=== PATIENT | male | born 1970 | race Caucasian/White ===

== ENCOUNTER 2016-06-26 18:35 | Emergency (ER) | payer OTHER ==
[~2016-06-26 18:35] MED LIST: PERCOCET1 TA1 PO; TYLENOL/CODEINE #3 PO
--- NOTE | 2016-06-26 22:16 | DIAGNOSTIC IMAGING REPORT ---
PROCEDURE: ABDOMEN/PELVIS WITH CONTRAST CLINICAL INDICATION: ABDOMINAL PAIN TECHNIQUE: 125 ml of Isovue 300 were injected intravenously and axial images were obtained of the abdomen and pelvis with sagittal and coronal reformations. COMPARISON: 03/28/2016 FINDINGS: ABDOMEN: Clear lung bases. Normal sized heart. No hiatal hernia. A few hypodensities are present in the liver, too small to accurately characterize. Small cysts in each kidney, the largest exophytic cyst in the left kidney upper pole measures 2.0 cm. The gallbladder is decompressed. The adrenal glands, pancreas and spleen are normal. The abdominal aorta is normal in its course and caliber. No atherosclerosis. There are no suspicious calcifications, retroperitoneal adenopathy or masses. The stomach, upper bowel loops are normal. Intact anterior abdominal wall. No free fluid or inflammation. Normal mesentery without signs of rotation. No mesenteric mass or fluid. No small bowel obstruction. PELVIS: The appendix is surgically absent. The pelvic small bowel loops are normal. Mildly increased amount of stool in the colon and rectum. The prostate gland, seminal vesicles, urinary bladder, and pelvic vessels are normal. No adenopathy, free fluid, or pelvic mass. Intact osseous structures. IMPRESSION: 1. No acute process. 2. No evidence of volvulus, internal hernia, malrotation, or bowel obstruction. 3. Findings called to the emergency room. All CT scans at this facility use dose modulation, iterative reconstruction, and/or weight-based dosing when appropriate to reduce radiation dose to as low as reasonably achievable.
--- NOTE | 2016-06-26 22:21 | ED ORDER SUMMARY ---
..... Patient: DEO COLLINS OrderSheet [facility] VisitID: [id number] [address] [place] [address] 46y, M Registration Date/Time: 06/26/2016 ORDER SHEET Weight: 63.5 kg (stated) Allergies: Penicillin GENERAL ORDERS: CBC w Diff Urgent (19:48 06/26/2016 HSoule per protocol) (19:56 AMcQuoid ER Tech1) CMP Urgent (19:48 06/26/2016 HSoule per protocol) (19:56 AMcQuoid ER Tech1) UA-Culture if indicated Urgent (19:48 06/26/2016 HSoule per protocol) (Ack 19:56 AMcQuoid ER Tech1) (19:58 AMcKenna) Lipase Urgent (21:06/26/2016 Mamadou RAMOS) (21:17 AMcQuoid ER Tech1) Amylase Urgent (21:06/26/2016 Mamadou RAMOS) (21:17 AMcQuoid ER Tech1) CT Abd/Pel w Cont (No) (N/A) Urgent (21:07 06/26/2016 Mamadou RAMOS) (Ack 21:17 AMcQuoid ER Tech1) (22:39 RFay) MEDICATION ORDERS: IV FLUIDS: IV Saline Lock (19:48 06/26/2016 HSoule per protocol) (Ack 19:58 AMcKenna) (19:58 AMcKenna) IV NS : initial bolus 500 mL (1000 mL/hr), then 250 mL/hr for 2h (NOW); Routine (21:08 06/26/2016 Mamadou RAMOS) (Ack 21:11 HSoule) (Hold 21:22 HSoule) (21:41 HSoule) ORDER SHEET NOTES: [Electronically signed by Angelica Sams (22:57 06/26/2016)] [Electronically signed by Camilo Guerrero MD (10:25 06/30/2016)] [Electronically locked/signed by Angelica Sams (22:57 06/26/2016)]
--- NOTE | 2016-06-26 22:21 | ED ORDER SUMMARY ---
..... Patient: DEO COLLINS OrderSheet [facility] VisitID: [id number] [address] [place] [address] 46y, M Registration Date/Time: 06/26/2016 ORDER SHEET Weight: 63.5 kg (stated) Allergies: Penicillin GENERAL ORDERS: CBC w Diff Urgent (19:48 06/26/2016 HSoule per protocol) (19:56 AMcQuoid ER Tech1) CMP Urgent (19:48 06/26/2016 HSoule per protocol) (19:56 AMcQuoid ER Tech1) UA-Culture if indicated Urgent (19:48 06/26/2016 HSoule per protocol) (Ack 19:56 AMcQuoid ER Tech1) (19:58 AMcKenna) Lipase Urgent (21:06/26/2016 Mamadou RAMOS) (21:17 AMcQuoid ER Tech1) Amylase Urgent (21:06/26/2016 Mamadou RAMOS) (21:17 AMcQuoid ER Tech1) CT Abd/Pel w Cont (No) (N/A) Urgent (21:07 06/26/2016 Mamadou RAMOS) (Ack 21:17 AMcQuoid ER Tech1) (22:39 RFay) MEDICATION ORDERS: IV FLUIDS: IV Saline Lock (19:48 06/26/2016 HSoule per protocol) (Ack 19:58 AMcKenna) (19:58 AMcKenna) IV NS : initial bolus 500 mL (1000 mL/hr), then 250 mL/hr for 2h (NOW); Routine (21:08 06/26/2016 Mamadou RAMOS) (Ack 21:11 HSoule) (Hold 21:22 HSoule) (21:41 HSoule) ORDER SHEET NOTES: [Electronically signed by Angelica Sams (22:57 06/26/2016)] [Electronically signed by Camilo Guerrero MD (10:25 06/30/2016)] [Electronically locked/signed by Angelica Sams (22:57 06/26/2016)]
--- NOTE | 2016-06-26 22:21 | ED NURSING NOTES ---
Clinical Report - Nurses [facility]ly [facility] [address] [place] [address] 06/26/2016 18:36 Patient: DEO COLLINS TRIAGE Triage time 18:57 Jun 26 2016. Acuity: LEVEL 3. Chief Complaint: ABDOMINAL PAIN. SEPSIS SCREEN: Sepsis Screen: negative. Negative (no infection suspected/documented). Heart rate greater than 90. SERGIO COMA SCORE: Sergio Coma Scale: 15- eyes open spontaneously (4); best verbal response- oriented and converses (5); best motor response- obeys commands (6). --19:02 AliM 18:55 06/26/16. BP: 143/97. HR: 108. RR: 20. O2 saturation: 97%. Temp: 98.3 F (oral). Pain level now: 10/08. --19:02 AliM. Weight: 63.5 kg stated. Height/Length: 67 inches Per Patient. BMI: 21.9. --19:00 AliM. Medications None. --18:58 AliM. Allergies Penicillin. --18:59 AliM. History Arrived by private vehicle. Historian: patient. Unaccompanied. Primary physician ([place]). ( Abdominal pain). ( Pt reports appendectomy in March and pain started 6 days. Pt reports more pain with pressure but pain is continuous. Pt reports normal bowel pattern, no nausea.). He has had moderate, sharp, intermittent abdominal pain (for 6 days). The pain is described as located in the RLQ. No nausea, vomiting, diarrhea or constipation. PAST MEDICAL HX: Immunizations: status is unknown. SOCIAL HX: Smoker- current status unknown (1 pack every 3 days). No alcohol use or drug use. No recent travel. No infectious disease exposure. No known contact with a sick individual. ABUSE ASSESSMENT: No report of abuse. FALL RISK ASSESSMENT: Fall risk assessment completed. No fall risk identified. NUTRITIONAL RISK ASSESSMENT: The nutritional risk assessment revealed no deficiencies. FUNCTIONAL ASSESSMENT: Functional assessment: no impairments noted. LEARNING NEEDS ASSESSMENT: The learning needs assessment revealed no barriers. SKIN INTEGRITY ASSESSMENT: Skin integrity risk assessment completed. No skin integrity risk identified. --19:02 AliM. PROBLEMS: Sciatica. Acute Pain. Epididymitis. --18:59 AliM. ADDITIONAL SURGERIES: Appendectomy. --18:59 AliM. PHYSICAL ASSESSMENT Ambulatory to room. GENERAL / NEURO / PSYCH: Alert. Oriented X 4. Appears in no acute distress. HEENT: Mucous membranes are pink. RESPIRATORY: Respirations not labored. CVS: Cardiac rhythm: sinus tachycardia. Capillary refill less than 2 seconds. GI / : Abdomen soft. Abdominal tenderness in the right lower quadrant. Guarding present. No rebound tenderness. SKIN: Skin is warm and dry. --19:04 AliM. NURSING PROGRESS NOTES Patient gowned. Head of bed elevated. Reassurance given. Call light placed in reach. Side rails up x 1. Bed placed in lowest position. Brakes of bed on. Patient ready for evaluation- ED physician notified. --19:04 AliM 19:56 06/26/16. BP: 127/70. HR: 82. RR: 14. O2 saturation: 99%. Pain level now: 0/10. --19:57 AliM Patient ID band checked for patient name and birthdate: patient confirmed. Instructions provided to collect clean catch urine and patient verbalized understanding. Clean catch urine collected with return of yellow-colored clear urine; sample sent to lab. Specimen labeled in the presence of the patient. --19:57 AliM 19:42 06/26/2016 Site #1 started via IV in the left antecubital space with an 20g angiocath, with aseptic technique and good blood return; one attempt. Blood drawn: rainbow set. Labeled in the presence of the patient and sent to the lab. Saline lock flushed with 10 mL saline. --19:57 AliM 21:03 06/26/16. BP: 140/92. HR: 103. RR: 14. O2 saturation: 100%. Temp: 98.5 F (oral). Pain level now: 0/10. Additional comments: Pysician at bedside. --21:03 Ali Patient walked to AK with tech. (21:18 Jun 26 2016). --21:18 Angelica Sams Patient returned from CT by stretcher with tech. (21:30 Jun 26 2016). --21:36 Angelica Sams 21:40 06/26/2016 Started bag #1 1000 mL IV Fluids IV NS (Saline); at 1000 mL/hr over 30 minute(s) via site #1 via IV pump. Allergies verified and confirmed 5 rights. IV patency established. IV site checked: no pain, redness, or swelling. IV flushed thoroughly pre- and post-medication administration. --21:41 Angelica Sams 22:24 06/26/2016 IV Fluids IV NS via IV site #1 Rate Changed: bag #1 decreased to 250 mL/hr via IV pump. IV patency established. IV site checked: no pain, redness, or swelling. IV flushed thoroughly. Confirmed 5 Rights. --22:24 Angelica Sams 22:35 06/26/2016 IV Fluids IV NS Discontinued: bag #1 discontinued upon discharge. Total amount infused: 800 mL. IV patency established. IV site checked: no pain, redness, or swelling. IV flushed thoroughly. --22:56 Angelica Sams. DISPOSITION / DISCHARGE Condition at departure: unchanged and stable. No learning barriers present. Discharge instructions provided and reviewed with the patient. Patient verbalized understanding. Written instructions provided in Cook Islander. ( Taught pt to drink a lot of fluids while taking GoLytely. Informed pt to stay near bathroom while on medication.). The patient was discharged by the nurse practitioner. He was discharged home and unaccompanied at time of discharge. He left the Emergency Department ambulatory and via private vehicle. Patient driving. FALL RISK ASSESSMENT: Fall risk assessment completed. No fall risk identified. --22:44 Lam 22:41 06/26/16. BP: 137/94. HR: 106. RR: 14. O2 saturation: 98%. Temp: 97.6 F (oral). Pain level now: 0/10. Additional comments: Provider aware of vitals and cleared for discharge. --22:44 Lam ( Chart reviewed by writing RN). --22:56 Angelica Sams 22:35 06/26/2016 Site #1 removed upon discharge. Catheter intact. Bandaid applied. --22:56 Angelica Sams. Locked/Released at 06/26/2016 22:57 by Angelica Sams,
--- NOTE | 2016-06-26 22:21 | ED CLINICAL REPORT ---
Clinical Report - Physicians/Mid Levels [facility] [address] [place] [address] 06/26/2016 18:36 Patient: DEO COLLINS Time Seen: 20:55 Jun 26 2016. Arrived- By private vehicle. Historian- patient. CPT: ER phys charges level 4 (#[id number]). HISTORY OF PRESENT ILLNESS Chief Complaint: ABDOMINAL PAIN. At its maximum, severity described as moderate. When seen in the E.D., severity described as mild. Modifying factors- worsened by movement. Not relieved by anything. It is described as cramping and it is described as located in the right lower quadrant and in the periumbilical area. This started about 8 days RESORT MANAGER; ( Pt reports appendectomy in March and pain started 6 days. Pt reports more pain with pressure but pain is continuous. Pt reports normal bowel pattern, no nausea.). He has had moderate, sharp, intermittent abdominal pain (for 6 days). The pain is described as located in the RLQ. No nausea, vomiting, diarrhea or constipation. and is still present. No nausea, loss of appetite, vomiting or diarrhea. The patient has had recent travel. Similar symptoms previously: None. Recent medical care: The patient was seen recently at this facility (3 months ago). Evaluation/treatment- Appendectomy. REVIEW OF SYSTEMS No constipation, black stools, hematemesis, difficulty with urination or pain with urination. No urinary frequency, fever, sore throat, chest pain or difficulty breathing. No cough, joint pain, skin rash, chills or back pain. All systems otherwise negative, except as recorded above. PAST HISTORY Sciatica. Acute Pain. Epididymitis. . ADDITIONAL SURGERIES: Appendectomy. Medications: None. Allergies: Penicillin. SOCIAL HISTORY Heavy tobacco smoker- less than 1 pack per day. No alcohol use or drug use. ADDITIONAL NOTES The nursing notes have been reviewed. PHYSICAL EXAM Vital Signs: 06/26/2016 18:55 BP: 143/97. HR: 108. RR: 20. O2 saturation: 97%. Temp: 98.3 F. Pain level now: 10/08. Appearance: Alert. No acute distress. Eyes: Eyes normal inspection. ENT: Pharynx normal. Neck: Normal inspection. CVS: Tachycardia. Heart sounds normal. Pulses normal. Respiratory: No respiratory distress. Breath sounds normal. Chest nontender. Abdomen: Soft. Mild tenderness in the right side of the abdomen, periumbilical area and right lower quadrant. Bowel sounds normal. Back: Normal inspection. No CVA tenderness. Skin: Skin warm. Normal skin color. No rash. Extremities: Extremities exhibit normal ROM. No lower extremity edema. Neuro: Oriented X 3. No motor deficit. No sensory deficit. LABS, X-RAYS, AND EKG Abdominal CT: Normal study. No mass. No free fluid. No diverticulitis. Moderate retained stool. No post-op fluid collections or inflammation. Study type: abdomen and pelvis. Abdominal CT performed with IV contrast. The study was independently viewed by me, interpreted by the radiologist and discussed with the radiologist. Laboratory Tests: UA-Culture if indicated: (BETSY: 06/26/2016 19:54) ( [facility] 06/26/2016 21:03) Final results Test Result Flag Units (Reference) URINE COLOR YELLOW URINE APPEARANCE CLEAR URINE GLUCOSE NEGATIVE (NEGATIVE) URINE BILIRUBIN NEGATIVE (NEGATIVE) URINE KETONE NEGATIVE (NEGATIVE) URINE SPECIFIC GRAVITY 1.020 (1.010-1.030) URINE PH 6.0 (5.0-8.0) URINE PROTEIN NEGATIVE (NEGATIVE) URINE UROBILINOGEN 0.2 EU/dL (0.2-1.0) URINE NITRITE NEGATIVE (NEGATIVE) URINE BLOOD NEGATIVE (NEGATIVE) URINE LEUK ESTERASE NEGATIVE (NEGATIVE) URINE RBC RARE rbc/hpf (0-1) URINE WBC NONE SEEN wbc/hpf (0-1) URINE EPITHELIAL CELLS NONE SEEN EPI/hpf (0-5) URINE BACTERIA NONE SEEN (NONE SEEN) URINE COMMENT CULT NOT INDICATED URINE CULTURES ARE SET-UP BASED ON THE FOLLOWING CRITERIA:POSITIVE NITRITEPOSITIVE LEUKOCYTE ESTERASEGREATER THAN 10 WHITE BLOOD CELLSMODERATE (2+) OR GREATER BACTERIA CBC w Diff: (BETSY: 06/26/2016 19:13) ( [facility] 06/26/2016 20:08) Final results Test Result Flag Units (Reference) WHITE BLOOD COUNT 7.2 K/uL (4.5-11.5) RED BLOOD COUNT 4.87 M/uL (4.50-5.90) HEMOGLOBIN 14.4 gm/dL (13.5-17.5) HEMATOCRIT 42.7 % (41.0-53.0) MEAN CELL VOLUME 88 fL (80-100) MEAN CORPUSCULAR HGB 30 pg (26-34) MEAN CORPUSCULAR HGB CONC 34 g/dL (31-37) RED CELL DISTRIBUTION WIDTH 13.3 % (11.6-14.8) PLATELET COUNT 204 K/uL (150-400) NEUTROPHIL % 56.1 % (50-75) LYMPH % 33.5 % (25-40) MONO % 7.3 % (3-14) EOSINOPHIL % 2.7 % (0-4) BASOPHIL % 0.4 % (0-2) Lipase: (BETSY: 06/26/2016 19:13) ( [facility] 06/26/2016 21:28) Final results Test Result Flag Units (Reference) LIPASE 167 U/L (73-393) AMYLASE 68 U/L (25-115) CMP: (BETSY: 06/26/2016 19:13) ( [facility] 06/26/2016 20:14) Final results Test Result Flag Units (Reference) GLUCOSE 108 mg/dL (70-110) BUN 16 mg/dL (7-18) CREATININE 1.0 mg/dL (0.6-1.3) Estimated GFR >60 mL/min Estimated GFR- >60 mL/min Note: Persistent reduction over 3 months in eGFR<60 mL/min/1.73 m2 defines CKD. Patients with eGFR values>=60 mL/min/1.73 m2 may also have CKD if evidence ofpersistent proteinuria. Additional information may be foundat www.kidney.org. SODIUM 130 L mmol/L (136-145) POTASSIUM 3.4 L mmol/L (3.5-5.1) CHLORIDE 103 mmol/L (98-107) CARBON DIOXIDE 26 mmol/L (21-32) CALCIUM 9.1 mg/dL (8.5-10.1) TOTAL PROTEIN 6.9 g/dL (6.4-8.2) ALBUMIN 4.0 g/dL (3.3-5.0) BILIRUBIN, TOTAL 0.3 mg/dL (0.0-1.0) ALKALINE PHOSPHATASE 83 U/L (46-116) AST (SGOT) 17 U/L (15-37) ALT (SGPT) 32 U/L (12-78) . PROGRESS AND PROCEDURES Course of Care: IV NS. Patient/family counseled. Disposition: Discharged. Condition: stable. CLINICAL IMPRESSION Acute right lower quadrant abdominal pain of unknown cause. INSTRUCTIONS Warnings: Further evaluation is necessary. GENERAL WARNINGS: Return or contact your physician immediately if your condition worsens or changes unexpectedly, if not improving as expected, or if other problems arise. Prescription Medications: GoLytely 4 oz every 10 minutes until gone or until all output is clear. # 1 jug. OTC Medications: Take acetaminophen (Tylenol, Datril, etc.) according to label instructions. Available over the counter. Follow-up: Return to the emergency department for fever , passing blood or acute worsening pain. Follow up with your doctor in two days if not well. Understanding of the discharge instructions verbalized by patient. (Electronically signed by Camilo Guerrero MD 06/30/2016 10:25)
--- NOTE | 2016-06-30 10:25 | ED DISCHARGE INSTRUCTIONS ---
Patient: DEO COLLINS General Instructions [facility] VisitID: [id number] [place] [address] 46y, M Registration Date/Time: 06/26/2016 Acute right lower quadrant abdominal pain of unknown cause. INSTRUCTIONS Warnings: Further evaluation is necessary. GENERAL WARNINGS: Return or contact your physician immediately if your condition worsens or changes unexpectedly, if not improving as expected, or if other problems arise. Prescription Medications: GoLytely 4 oz every 10 minutes until gone or until all output is clear. # 1 jug. OTC Medications: Take acetaminophen (Tylenol, Datril, etc.) according to label instructions. Available over the counter. Follow-up: Return to the emergency department for fever , passing blood or acute worsening pain. Follow up with your doctor in two days if not well. Understanding of the discharge instructions verbalized by patient. ADDITIONAL INFORMATION Abdominal Pain,Uncertain Cause [Male] Based on your visit today, the exact cause of your abdominalpain is not clear. Your exam and tests do not indicate a dangerous cause at this time. However, the signs of a serious problem may take more time to appear. Although your evaluation was reassuring today, sometimes early in the course of many conditions, exam and lab tests can appear normal. Therefore, it is important for you to watch for any new symptoms or worsening of your condition. Causes It may not be obvious what caused your symptoms. Pay attention to things that do seem to make your symptoms worse or better and discuss this with your doctor when you follow up. Diagnosis The evaluation of abdominal pain in the emergency department may onlyrequire an exam by the doctor or it may include blood, urine or imaging studies, depending on many factors. Sometimes exams and tests can identify a cause but in many cases, a clear cause is not found. Further testing at follow up visits may help to suggest a clear diagnosis. Home Care Rest as much as possible until your next exam. Try to avoid any medications (unless otherwise directed by your doctor), foods, activities, or other factors that you may have contributed to your symptoms. Try to eat foods that you know that you have tolerated well in the past. Certain diets may be recommended for some conditions that cause abdominal pain. However, since the cause of your symptoms may not be clear, discuss your diet more with your primary care provider or specialist for further recommendations. Eating several small meals per day as opposed to 2 or 3 larger meals may help. Monitor closely for anything that may make your symptoms worse or better. Pay close attention to symptoms below that may indicate worsening of your condition. Follow Up and Precautions See your doctoras instructed or sooneror if your symptoms are not improving.In some cases, you may need more testing. When to Seek Medical Attention Contact your doctor or see medical attention ifany of the following occur: Pain is becoming worse You are unable to take your medications due to excessive vomiting Swelling of the abdomen Fever of 100.4F (38C) or higher, or as directed by your health care provider Blood in vomit or bowel movements (dark red or black color) Jaundice (yellow color of eyes and skin) New onset of weakness, dizziness or fainting New onset of chest, arm, back, neck or jaw pain You have been given the following additional information: Abdominal Pain, Unknown Cause, (Male) (Electronically signed by Camilo Guerrero MD 06/30/2016 10:25)
--- NOTE | 2016-06-30 10:25 | ED MED RECONCILIATION SUMMARY ---
Patient: DEO COLLINS Medication Reconciliation Report [facility] VisitID: [id number] [address] [place] [address] 46y, M Registration Date/Time: 06/26/2016 Weight: 63.5 kg Height/Length: 67 in. BMI: 21.9 ALLERGIES: Penicillin The patient's Home Medications are listed below: NONE. The source(s) of the original Home Medication information: Not obtained. The following Medications were given to the patient in the Emergency Department: IV NS IV Fluids bolus 0, then 1000 mL/hr, administered: 06/26/2016 9:40:00 PM The following Medications were prescribed to the patient: Take acetaminophen (Tylenol, Datril, etc.) according to label instructions. Available over the counter. -- Camilo Guerrero MD GoLytely 4 oz every 10 minutes until gone or until all output is clear. # 1 jug. -- Camilo Guerrero MD
--- NOTE | 2016-06-30 10:25 | ED MED RECONCILIATION SUMMARY ---
Patient: DEO COLLINS Medication Reconciliation Report [facility] VisitID: [id number] [address] [place] [address] 46y, M Registration Date/Time: 06/26/2016 Weight: 63.5 kg Height/Length: 67 in. BMI: 21.9 ALLERGIES: Penicillin The patient's Home Medications are listed below: NONE. The source(s) of the original Home Medication information: Not obtained. The following Medications were given to the patient in the Emergency Department: IV NS IV Fluids bolus 0, then 1000 mL/hr, administered: 06/26/2016 9:40:00 PM The following Medications were prescribed to the patient: Take acetaminophen (Tylenol, Datril, etc.) according to label instructions. Available over the counter. -- Camilo Guerrero MD GoLytely 4 oz every 10 minutes until gone or until all output is clear. # 1 jug. -- Camilo Guerrero MD
--- NOTE | 2016-06-30 10:25 | ED MAR SUMMARY ---
..... Medication Administration Record [facility] [address] [place] [address] Patient: DEO COLLINS Visit ID: [id number] 46y, M Weight: 63.5 kg Height/Length: 67 in BMI: 21.9 ALLERGIES: Penicillin Start 21:40 06/26/2016 Angelica Sams,, Stop 22:35 06/26/2016 Angelica Sams, Medication Administered: IV NS (SALINE), Dose: IV Fluids over 30 minute(s), Rate: 1000 mL/hr, Dispensed: 1000 mL bag, Site: #1 left . Medication Ordered: IV NS : initial bolus 500 mL (1000 mL/hr), then 250 mL/hr for 2h (NOW); Routine.
--- NOTE | 2016-06-30 10:25 | ED MAR SUMMARY ---
..... Medication Administration Record [facility] [address] [place] [address] Patient: DEO COLLINS Visit ID: [id number] 46y, M Weight: 63.5 kg Height/Length: 67 in BMI: 21.9 ALLERGIES: Penicillin Start 21:40 06/26/2016 Angelica Sams,, Stop 22:35 06/26/2016 Angelica Sams, Medication Administered: IV NS (SALINE), Dose: IV Fluids over 30 minute(s), Rate: 1000 mL/hr, Dispensed: 1000 mL bag, Site: #1 left . Medication Ordered: IV NS : initial bolus 500 mL (1000 mL/hr), then 250 mL/hr for 2h (NOW); Routine.
== END 2016-06-26 22:40 | disposition home or self-care (01) ==
LOC: ED SRH 18:35
DX: R10.31 Right lower quadrant pain (principal); Z88.0 Allergy status to penicillin; F17.210 Nicotine dependence, cigarettes, uncomplicated
CPT/HCPCS: 90004; 90100; 92235; 92530; 95059

== ENCOUNTER 2016-08-15 11:52 | Emergency (ER) | payer OTHER ==
--- NOTE | 2016-08-15 13:35 | DIAGNOSTIC IMAGING REPORT ---
PROCEDURE: XR CHEST 2 VIEW INDICATION: CHEST PAIN TECHNIQUE: PA and lateral view. COMPARISON: Chest x-ray 03/31/2016. FINDINGS: Lungs are clear. Cardiovascular structures are normal. Mild degenerative changes of the spine. IMPRESSION: 1. Negative chest.
--- NOTE | 2016-08-15 14:19 | ED ORDER SUMMARY ---
..... Patient: DEO COLLINS OrderSheet [facility] VisitID: [id number] [address] [place] [address] 46y, M Registration Date/Time: 08/15/2016 ORDER SHEET Weight: 66.2 kg (stated) Allergies: Penicillin GENERAL ORDERS: EKG - ER Stat (12:03 08/15/2016 David Matos) (Ack 12:04 PWeiler ER Tech1) (12:11 PWeiler ER Tech1) Chest 2V Urgent (12:08/15/2016 David Matos) (Ack 12:21 PWeiler ER Tech1) (12:27 LWhalen R.N.) Wastewater Analyst (Continuous) (CP) (12:08/15/2016 David Matos) (12:27 LWhalen R.N.) CBC w Diff Urgent (12:08/15/2016 David Matos) (Ack 12:21 PWeiler ER Tech1) (12:27 LWhalen R.N.) CMP Urgent (12:08/15/2016 David Matos) (Ack 12:21 PWeiler ER Tech1) (12:27 LWhalen R.N.) UA-Culture if indicated Urgent (12:18 08/15/2016 David Matos) (Ack 12:21 PWeisuzette ER Tech1) (12:23 KWilliams R.N.) D-Dimer Urgent (12:08/15/2016 David Matos) (Ack 12:21 PWeiler ER Tech1) (12:27 LWhalen R.N.) Troponin-I Urgent (12:18 08/15/2016 David Matos) (Ack 12:21 PWeisuzette ER Tech1) (12:27 LWhalen R.N.) Pulse oximeter (12:08/15/2016 David Matos) (12:27 LWhalen R.N.) MEDICATION ORDERS: NitroGLYCERIN SL 0.4 mg (once now) (12:08/15/2016 David Matos) (12:23 KWilliams R.N.) Aspirin PO 325 mg (Do not crush or chew, NOW) (12:59 08/15/2016 David Matos) (13:03 DDeamoises R.N.) GI Cocktail WHITE PO 30 mL (NOW) (13:48 08/15/2016 David Matos) (Ack 14:11 DDean R.N.) (14:18 DDean R.N.) IV FLUIDS: IV Saline Lock (12:18 08/15/2016 David Matos) (12:27 LWhalen R.N.) ORDER SHEET NOTES: [Electronically signed by Angela Andrea R.N. (14:50 08/15/2016)] [Electronically signed by Bernabe Banda Dr. (01:21 08/18/2016)] [Electronically locked/signed by Angela Andrea R.N. (14:50 08/15/2016)]
--- NOTE | 2016-08-15 14:19 | ED NURSING NOTES ---
Clinical Report - Nurses [facility] [address] [place] [address] 08/15/2016 11:53 Patient: DEO COLLINS TRIAGE Triage time 12:Aug 15 2016. Acuity: LEVEL 3. Chief Complaint: CHEST PAIN. SERGIO COMA SCORE: Sergio Coma Scale: 15- eyes open spontaneously (4); best verbal response- oriented x 4 (5); best motor response- obeys commands (6). --12:06 Ezra Yu R.N. 12:02 08/15/16. BP: 141/98. HR: 97. RR: 18. O2 saturation: 100%. Temp: 98.1 F. Pain level now 4/10. --12:06 Ezra Yu R.N. Weight: 66.2 kg stated. Height/Length: 67 inches Per Patient. BMI: 22.9. --12:04 Ezra Yu R.N. Medications None. --12:03 Ezra Yu R.N. Allergies Penicillin. --12:03 Ezra Yu R.N. History Arrived by private vehicle. Historian: patient. Primary physician (). This started last night. He has had difficulty breathing. No sweating episodes, nausea, vomiting, fever or cough. Treatment RETAIL MANAGEMENT TRAINEE: None. PAST MEDICAL HX: Immunizations: up-to-date. SOCIAL HX: Light tobacco smoker- less than 1/2 a pack per day. No alcohol use or drug use. SELF HARM ASSESSMENT: A self harm assessment was performed. The patient answered "no" to the question "Have you recently felt down, depressed, or hopeless?" and "Do you have thoughts of harming or killing yourself?". FALL RISK ASSESSMENT: Fall risk assessment completed. No fall risk identified. NUTRITIONAL RISK ASSESSMENT: The nutritional risk assessment revealed no deficiencies. FUNCTIONAL ASSESSMENT: Functional assessment: no impairments noted. LEARNING NEEDS ASSESSMENT: The learning needs assessment revealed no barriers. ABUSE ASSESSMENT: Abuse assessment: (yes) The patient was asked "Do you feel safe in your home?". SKIN INTEGRITY ASSESSMENT: Skin integrity risk assessment completed. No skin integrity risk identified. --12:06 Ezra Yu R.N. PROBLEMS: Abdominal Pain. Back Injury. Sciatica. Acute Pain. Back Pain. Epididymitis. Testicular Torsion. Lumbar Radiculopathy. --12:04 Ezra Yu R.N. ADDITIONAL SURGERIES: Appendectomy. Bowel Surgery. --12:04 Ezra Yu R.N. Interventions ID and allergy band on patient. --12:06 Ezra Yu R.N. PHYSICAL ASSESSMENT Ambulatory to room. GENERAL / NEURO / PSYCH: Alert. Oriented X 4. Appears in no acute distress. HEENT: Mucous membranes are pink. RESPIRATORY: Respirations not labored. Chest nontender. Breath sounds within normal limits. CVS: Normal sinus rhythm noted. Pulses within normal limits. Capillary refill less than 2 seconds. GI / : Abdomen soft and nontender. ( Last BM this am and normal). EXTREMITIES: No lower extremity edema. SKIN: Skin is warm and dry. Normal skin turgor. Skin is non-tender. --12:07 Ezra Yu R.N. NURSING PROGRESS NOTES The initial plan of care for this patient includes an assessment with efforts to address the patient's anxiety; impairment of the cardiovascular and musculoskeletal system. Pulse oximeter and NIBP monitor placed on patient. Patient gowned. Head of bed elevated 90 degrees. Reassurance given. Call light placed in reach. Side rails up x 1. Bed placed in lowest position. Brakes of bed on. --12:08 Ezra Yu R.N. 12:20 08/15/2016 Nitroglycerin SL Tablets 0.4 mg given. Allergies verified and confirmed 5 rights. --12:23 Milagro Pozo R.N. Patient ID band checked for patient name and birthdate: patient confirmed. Instructions provided to collect clean catch urine and patient verbalized understanding. Clean catch urine collected with return of yellow-colored clear urine; odor is normal; sample sent to lab for urinalysis and culture. Specimen labeled in the presence of the patient. --12:24 Milagro Pozo R.N. 12:27 08/15/2016 Site #1 started via IV in the right antecubital space with an 20g angiocath, with aseptic technique and good blood return; one attempt. Blood drawn: rainbow set. Labeled in the presence of the patient and sent to the lab. Saline lock flushed with 10 mL saline. --12:27 Ezra Yu R.N. 12:36 08/15/16. Patient transported to radiology by stretcher with tech. --12:36 Angela Andrea R.N. 12:42. Patient returned from radiology by stretcher with tech. --12:53 Angela Andrea R.N. 12:45. Patient ID band checked for patient name and birthdate: patient confirmed. Blood samples drawn by nurse per protocol ; labeled in presence of the patient and sent to lab: red, green and blue top. --12:54 Angela Anrdea R.N. 12:46 08/15/16. BP: 115/78. HR: 75. RR: 16. O2 saturation: 99% on room air. Temp: deferred. Pain level now: 110. --12:54 Angela Andrea R.N. 12:55 08/15/2016 Nitroglycerin SL Response: pain is improving. Symptoms have improved the patient feels better. (pt states pain is now 1/10, but not sure if that was related to NTG or not). --12:55 Angela Andrea R.N. 13:03 08/15/2016 Aspirin PO Tablets 324 mg given. Allergies verified and confirmed 5 rights. --13:03 Angela Andrea R.N. 13:00 08/15/16. BP: 122/80. HR: 88. RR: 18. O2 saturation: 100%. Temp: deferred. Pain level now: 2/10. Additional comments: pt states chest hurts more when he moves, laughs or takes a deep breath . --13:04 Angela Andrea R.N. 13:23 08/15/16. Care transferred and report received. --13:23 Angela Andrea R.N. 13:30 08/15/16. BP: 112/84. HR: 84. RR: 16. O2 saturation: 100% on nasal cannula at 2 liters/minute. Temp: deferred. Pain level now: 0/10. Additional comments: pt resting quietly with eyes closed . --14:17 Angela Andrea R.N. 14:00 08/15/16. BP: 105/87. HR: 76. RR: 16. O2 saturation: 100%. Temp: deferred. Pain level now: 0/10. --14:17 Angela Andrea R.N. 14:05 08/15/2016 GI cocktail, white * PO 30cc --14:18 Angela Andrea R.N. 14:25 08/15/2016 Site #1 removed upon discharge. Bandaid applied. --14:49 Angela Andrea R.N. 14:25 08/15/2016 IV Saline Lock Drip IV Discontinued: bag #1 STOPPED upon discharge. Total amount infused: 0 mL. IV patency established. IV site checked: no pain, redness, or swelling. IV flushed thoroughly. --14:49 Angela Andrea R.N. 14:20. ( ERMD in to talk with pt about findings and follow up needed). --14:50 Angela Andrea R.N. DISPOSITION / DISCHARGE 14:30. Condition at departure: improved and stable. No learning barriers present. Discharge instructions provided and reviewed with the patient. Reviewed medication(s) (ASA, prilosec). Reviewed referral to a letter of credit document examiner. Patient verbalized understanding. Written instructions provided in Greek. The patient was discharged home and unaccompanied at time of discharge. He left the Emergency Department ambulatory and via private vehicle. Patient driving. --14:48 Angela Andrea R.N. 14:30 08/15/16. BP: 107/82. HR: 84. RR: 18. O2 saturation: 100%. Temp: deferred. Pain level now: 0/10. --14:48 Angela Andrea R.N. Locked/Released at 08/15/2016 14:50 by Angela Andrea R.N.
--- NOTE | 2016-08-15 14:19 | ED ORDER SUMMARY ---
..... Patient: DEO COLLINS OrderSheet [facility] VisitID: [id number] [address] [place] [address] 46y, M Registration Date/Time: 08/15/2016 ORDER SHEET Weight: 66.2 kg (stated) Allergies: Penicillin GENERAL ORDERS: EKG - ER Stat (12:03 08/15/2016 David Matos) (Ack 12:04 PWeiler ER Tech1) (12:11 PWeiler ER Tech1) Chest 2V Urgent (12:08/15/2016 David Matos) (Ack 12:21 PWeiler ER Tech1) (12:27 LWhalen R.N.) Slab Worker (Continuous) (CP) (12:08/15/2016 David Matos) (12:27 LWhalen R.N.) CBC w Diff Urgent (12:08/15/2016 David Matos) (Ack 12:21 PWeiler ER Tech1) (12:27 LWhalen R.N.) CMP Urgent (12:08/15/2016 David Matos) (Ack 12:21 PWeiler ER Tech1) (12:27 LWhalen R.N.) UA-Culture if indicated Urgent (12:18 08/15/2016 David Matos) (Ack 12:21 PWeisuzette ER Tech1) (12:23 KWilliams R.N.) D-Dimer Urgent (12:08/15/2016 David Matos) (Ack 12:21 PWeiler ER Tech1) (12:27 LWhalen R.N.) Troponin-I Urgent (12:18 08/15/2016 David Matos) (Ack 12:21 PWeisuzette ER Tech1) (12:27 LWhalen R.N.) Pulse oximeter (12:08/15/2016 David Matos) (12:27 LWhalen R.N.) MEDICATION ORDERS: NitroGLYCERIN SL 0.4 mg (once now) (12:08/15/2016 Davdi Matos) (12:23 KWilliams R.N.) Aspirin PO 325 mg (Do not crush or chew, NOW) (12:59 08/15/2016 David Matos) (13:03 DDeamoises R.N.) GI Cocktail WHITE PO 30 mL (NOW) (13:48 08/15/2016 David Matos) (Ack 14:11 DDean R.N.) (14:18 DDean R.N.) IV FLUIDS: IV Saline Lock (12:18 08/15/2016 David Matos) (12:27 LWhalen R.N.) ORDER SHEET NOTES: [Electronically signed by Angela Andrea R.N. (14:50 08/15/2016)] [Electronically signed by Bernabe Banda Dr. (01:21 08/18/2016)] [Electronically locked/signed by Angela Andrea R.N. (14:50 08/15/2016)]
--- NOTE | 2016-08-15 14:19 | ED CLINICAL REPORT ---
Clinical Report - Physicians/Mid Levels [facility] [address] [place] [address] 08/15/2016 11:53 Patient: DEO COLLINS Time Seen: 1203. Arrived- By private vehicle. Historian- patient. HISTORY OF PRESENT ILLNESS Chief Complaint: CHEST PAIN. At its maximum, severity described as moderate. When seen in the E.D., severity described as moderate. Modifying factors. Not worsened by anything. Not relieved by anything. This started last night and is still present. It was abrupt in onset and has been constant but is not gone now. It is described as pressure and it is described as located in the left chest area. No radiation. No nausea, vomiting, difficulty breathing or diaphoresis. (was at work when this happened). No additional chest pain. Similar symptoms previously: None. Recent medical care: Not recently seen/assessed. REVIEW OF SYSTEMS All systems otherwise negative, except as recorded above. PAST HISTORY See nurses notes. SOCIAL HISTORY Smoker- current status unknown. No alcohol use or drug use. No recent travel. Is a local resident. FAMILY HISTORY no family history of early cardiac disease. ADDITIONAL NOTES The nursing notes have been reviewed. PHYSICAL EXAM Vital Signs: 08/15/2016 12:02 BP: 141/98. HR: 97. RR: 18. O2 saturation: 100%. Temp: 98.1 F. Oxygen saturation normal. Appearance: Alert. Oriented X3. No acute distress. Eyes: Pupils equal, round and reactive to light. Eyes normal inspection. Neck: Normal inspection. Neck supple. No JVD. CVS: Normal heart rate and rhythm. Heart sounds normal. Pulses normal. Respiratory: No respiratory distress. Breath sounds normal. Chest nontender. No rales, rhonchi or wheezes. Abdomen: Soft and nontender. Bowel sounds normal. Back: Normal external inspection. Skin: Skin warm and dry. Normal skin color. No rash. Normal skin turgor. Extremities: Extremities exhibit normal ROM. No lower extremity edema. LABS, X-RAYS, AND EKG EKG: No acute process. No acute ischemia. Normal EKG. Normal sinus rhythm. Rate: 96. Normal P waves. Normal CHRIS. Normal QRS complex. Normal axis. Normal ST and T waves, QT and QTc. EKG unchanged when compared with prior EKG. The study has been interpreted contemporaneously by me. The study has been independently viewed by me. The EKG appears to be a good tracing. Chest X-ray: (PROCEDURE: XR CHEST 2 VIEW INDICATION: CHEST PAIN TECHNIQUE: PA and lateral view. COMPARISON: Chest x-ray 03/31/2016. FINDINGS: Lungs are clear. Cardiovascular structures are normal. Mild degenerative changes of the spine. IMPRESSION: 1. Negative chest.). The X-rays were independently viewed by me and interpreted by the radiologist. The X-rays were discussed with the radiologist (via pacs). Laboratory Tests: UA-Culture if indicated: (BETSY: 08/15/2016 12:20) ( MsgRcvd 08/15/2016 12:48) Final results Test Result Flag Units (Reference) URINE COLOR YELLOW URINE APPEARANCE CLEAR URINE GLUCOSE NEGATIVE (NEGATIVE) URINE BILIRUBIN NEGATIVE (NEGATIVE) URINE KETONE NEGATIVE (NEGATIVE) URINE SPECIFIC GRAVITY 1.015 (1.010-1.030) URINE PH 5.5 (5.0-8.0) URINE PROTEIN NEGATIVE (NEGATIVE) URINE UROBILINOGEN 0.2 EU/dL (0.2-1.0) URINE NITRITE NEGATIVE (NEGATIVE) URINE BLOOD NEGATIVE (NEGATIVE) URINE LEUK ESTERASE NEGATIVE (NEGATIVE) URINE RBC NONE SEEN rbc/hpf (0-1) URINE WBC NONE SEEN wbc/hpf (0-1) URINE EPITHELIAL CELLS RARE EPI/hpf (0-5) URINE BACTERIA NONE SEEN (NONE SEEN) URINE COMMENT CULT NOT INDICATED URINE CULTURES ARE SET-UP BASED ON THE FOLLOWING CRITERIA:POSITIVE NITRITEPOSITIVE LEUKOCYTE ESTERASEGREATER THAN 10 WHITE BLOOD CELLSMODERATE (2+) OR GREATER BACTERIA CBC w Diff: (BETSY: 08/15/2016 13:03) ( [facility] 08/15/[facility] 13:16) Final results Test Result Flag Units (Reference) WHITE BLOOD COUNT 7.5 K/uL (4.5-11.5) RED BLOOD COUNT 4.70 M/uL (4.50-5.90) HEMOGLOBIN 13.9 gm/dL (13.5-17.5) HEMATOCRIT 41.2 % (41.0-53.0) MEAN CELL VOLUME 88 fL (80-100) MEAN CORPUSCULAR HGB 30 pg (26-34) MEAN CORPUSCULAR HGB CONC 34 g/dL (31-37) RED CELL DISTRIBUTION WIDTH 13.6 % (11.6-14.8) PLATELET COUNT 200 K/uL (150-400) NEUTROPHIL % 65.1 % (50-75) LYMPH % 27.0 % (25-40) MONO % 6.0 % (3-14) EOSINOPHIL % 1.3 % (0-4) BASOPHIL % 0.6 % (0-2) [id number]: (BETSY: 08/15/2016 13:03) ( AkgRcvd 08/15/2016 13:21) Final results Test Result Flag Units (Reference) D-DIMER QUANTITATIVE < 0.27 L ug/mLFEU (0.27-0.52) The primary value of this quantitative assay relates toits negative predictive value (i.e. exclusion) of pulmonaryembolism/deep vein thrombosis/DIC.Elevated levels of d-dimer may also occur with:, age, cancer, inflammation, liver disease,post-op, infection, hematoma, coronary disease, peripheralarteriopathy, bleeding disorders and thrombolytic treatment.Results should be correlated with other clinical andradiological data.Testing Methodology: Latex Immunoassay CMP: (BETSY: 08/15/2016 13:03) ( AkgRcvd 08/15/2016 13:33) Final results Test Result Flag Units (Reference) GLUCOSE 85 mg/dL (70-110) BUN 12 mg/dL (7-18) CREATININE 0.9 mg/dL (0.6-1.3) Estimated GFR >60 mL/min Estimated GFR- >60 mL/min Note: Persistent reduction over 3 months in eGFR<60 mL/min/1.73 m2 defines CKD. Patients with eGFR values>=60 mL/min/1.73 m2 may also have CKD if evidence ofpersistent proteinuria. Additional information may be foundat www.kidney.org. SODIUM 140 mmol/L (136-145) POTASSIUM 4.3 mmol/L (3.5-5.1) CHLORIDE 104 mmol/L (98-107) CARBON DIOXIDE 27 mmol/L (21-32) CALCIUM 9.6 mg/dL (8.5-10.1) TOTAL PROTEIN 6.9 g/dL (6.4-8.2) ALBUMIN 4.0 g/dL (3.3-5.0) BILIRUBIN, TOTAL 0.2 mg/dL (0.0-1.0) ALKALINE PHOSPHATASE 78 U/L (46-116) AST (SGOT) 24 U/L (15-37) ALT (SGPT) 35 U/L (12-78) TROPONIN I <0.05 ng/mL (0.00-1.5) TROPONIN REFERENCE RANGE:<0.1 NEGATIVE0.1-1.5 INDETERMINANT>1.5 POSITIVE . PROGRESS AND PROCEDURES Course of Care: the patient is a pleasant 46-year-old male presenting for nausea and chest pain. Patient has a past medical history significant for smoking. Otherwise, patient does not have any other risk factors for cardiac disease. At this time differential diagnosis includes thoracic aortic dissection, pulmonary embolism, acute myocardial infarction, pneumothorax, pneumonia. Patient is nontoxic and in no acute distress on presentation. Medications for potential gastrointestinal etiologies for the pain as well as nitroglycerin provided. We'll monitor closely. Patient was reevaluated and found to have significant improvement with his symptoms. At this time, it is unclear if the nitroglycerin or the GI cocktail had improved his symptoms. Patient reports that he is not sure which one helped more or less. Some of the patient's laboratory studies are still pending at this time. he patient's laboratory studies had returned. Patient with negative troponin and negative d-dimer. Because of the patient's negative d-dimer, do not fill patient has dissecting thoracic aortic aneurysm,acute myocardial infarction, or pulmonary embolism. The patient's pain had completely resolved while here in the emergency department. The rest of the patient's laboratory studies are also noted. Unremarkable. Because of the patient's negative workup here in the emergency department and the patient's overall low cardiac risk, did not fill patient is be admitted to the hospital require further emergency department workup. Patient is a good outpatient candidate. Had a discussion with the patient in regards to outpatient cardiology follow-up and need for this particular follow-up. Also discussed the patient his workup. Emergency Department clinic diagnosis, home care, follow-up, and return precautions. All questions have been answered. The patient expressed understanding of these instructions and was agreeable to them. Disposition: Discharged. Condition: good. CLINICAL IMPRESSION Chest pain characterized as "discomfort" .12 lead EKG performed. 08/15/2016 12:02 BP: 141/98. HR: 97. RR: 18. O2 saturation: 100%. Temp: 98.1 F. Blood pressure normal. Oxygen saturation normal. INSTRUCTIONS Warnings: GENERAL WARNINGS: Return or contact your physician immediately if your condition worsens or changes unexpectedly, if not improving as expected, or if other problems arise. SPECIFICALLY, return if you develop chest, neck, jaw, shoulder, arm, or back pain, difficulty breathing, a fluttering sensation in your chest, lightheadedness, fainting, excessive fatigue, or sudden sweating. Your Current Medications: Prescription Medications: Pepcid 20 mg: take 1 orally every 12 hours as needed for indigestion, upset stomach or heartburn. Dispense thirty (30). No refills. Substitution is permissible. OTC Medications: Aspirin 81 mg (available over the counter): take 1 orally every 24 hours. Dispense thirty (30). No refills. Follow-up: Return to the emergency department as needed. Follow up with your doctor in three days. Reason for referral: recheck today's concerns. Summary of care provided to patient via paper. Screening today revealed the patient's blood pressure to be in the normal range. The patient should follow up with a primary care provider for blood pressure management. Understanding of the discharge instructions verbalized by patient. Follow-up with: Elida Wakefield MD, Cardiology, , [facility] - [facility], [address] [place] [address] [address], [facility], [id number] Follow up in three days. Reason for referral: recheck today's concerns. Summary of care provided to patient via paper. (Electronically signed by Bernabe Banda Dr. 08/18/2016 1:21)
--- NOTE | 2016-08-15 14:19 | ED CLINICAL REPORT ---
Clinical Report - Physicians/Mid Levels [facility] [address] [place] [address] 08/15/2016 11:53 Patient: DEO COLLINS Time Seen: 1203. Arrived- By private vehicle. Historian- patient. HISTORY OF PRESENT ILLNESS Chief Complaint: CHEST PAIN. At its maximum, severity described as moderate. When seen in the E.D., severity described as moderate. Modifying factors. Not worsened by anything. Not relieved by anything. This started last night and is still present. It was abrupt in onset and has been constant but is not gone now. It is described as pressure and it is described as located in the left chest area. No radiation. No nausea, vomiting, difficulty breathing or diaphoresis. (was at work when this happened). No additional chest pain. Similar symptoms previously: None. Recent medical care: Not recently seen/assessed. REVIEW OF SYSTEMS All systems otherwise negative, except as recorded above. PAST HISTORY See nurses notes. SOCIAL HISTORY Smoker- current status unknown. No alcohol use or drug use. No recent travel. Is a local resident. FAMILY HISTORY no family history of early cardiac disease. ADDITIONAL NOTES The nursing notes have been reviewed. PHYSICAL EXAM Vital Signs: 08/15/2016 12:02 BP: 141/98. HR: 97. RR: 18. O2 saturation: 100%. Temp: 98.1 F. Oxygen saturation normal. Appearance: Alert. Oriented X3. No acute distress. Eyes: Pupils equal, round and reactive to light. Eyes normal inspection. Neck: Normal inspection. Neck supple. No JVD. CVS: Normal heart rate and rhythm. Heart sounds normal. Pulses normal. Respiratory: No respiratory distress. Breath sounds normal. Chest nontender. No rales, rhonchi or wheezes. Abdomen: Soft and nontender. Bowel sounds normal. Back: Normal external inspection. Skin: Skin warm and dry. Normal skin color. No rash. Normal skin turgor. Extremities: Extremities exhibit normal ROM. No lower extremity edema. LABS, X-RAYS, AND EKG EKG: No acute process. No acute ischemia. Normal EKG. Normal sinus rhythm. Rate: 96. Normal P waves. Normal CHRIS. Normal QRS complex. Normal axis. Normal ST and T waves, QT and QTc. EKG unchanged when compared with prior EKG. The study has been interpreted contemporaneously by me. The study has been independently viewed by me. The EKG appears to be a good tracing. Chest X-ray: (PROCEDURE: XR CHEST 2 VIEW INDICATION: CHEST PAIN TECHNIQUE: PA and lateral view. COMPARISON: Chest x-ray 03/31/2016. FINDINGS: Lungs are clear. Cardiovascular structures are normal. Mild degenerative changes of the spine. IMPRESSION: 1. Negative chest.). The X-rays were independently viewed by me and interpreted by the radiologist. The X-rays were discussed with the radiologist (via pacs). Laboratory Tests: UA-Culture if indicated: (BETSY: 08/15/2016 12:20) ( MsgRcvd 08/15/2016 12:48) Final results Test Result Flag Units (Reference) URINE COLOR YELLOW URINE APPEARANCE CLEAR URINE GLUCOSE NEGATIVE (NEGATIVE) URINE BILIRUBIN NEGATIVE (NEGATIVE) URINE KETONE NEGATIVE (NEGATIVE) URINE SPECIFIC GRAVITY 1.015 (1.010-1.030) URINE PH 5.5 (5.0-8.0) URINE PROTEIN NEGATIVE (NEGATIVE) URINE UROBILINOGEN 0.2 EU/dL (0.2-1.0) URINE NITRITE NEGATIVE (NEGATIVE) URINE BLOOD NEGATIVE (NEGATIVE) URINE LEUK ESTERASE NEGATIVE (NEGATIVE) URINE RBC NONE SEEN rbc/hpf (0-1) URINE WBC NONE SEEN wbc/hpf (0-1) URINE EPITHELIAL CELLS RARE EPI/hpf (0-5) URINE BACTERIA NONE SEEN (NONE SEEN) URINE COMMENT CULT NOT INDICATED URINE CULTURES ARE SET-UP BASED ON THE FOLLOWING CRITERIA:POSITIVE NITRITEPOSITIVE LEUKOCYTE ESTERASEGREATER THAN 10 WHITE BLOOD CELLSMODERATE (2+) OR GREATER BACTERIA CBC w Diff: (BETSY: 08/15/2016 13:03) ( [facility] 08/15/2016 13:16) Final results Test Result Flag Units (Reference) WHITE BLOOD COUNT 7.5 K/uL (4.5-11.5) RED BLOOD COUNT 4.70 M/uL (4.50-5.90) HEMOGLOBIN 13.9 gm/dL (13.5-17.5) HEMATOCRIT 41.2 % (41.0-53.0) MEAN CELL VOLUME 88 fL (80-100) MEAN CORPUSCULAR HGB 30 pg (26-34) MEAN CORPUSCULAR HGB CONC 34 g/dL (31-37) RED CELL DISTRIBUTION WIDTH 13.6 % (11.6-14.8) PLATELET COUNT 200 K/uL (150-400) NEUTROPHIL % 65.1 % (50-75) LYMPH % 27.0 % (25-40) MONO % 6.0 % (3-14) EOSINOPHIL % 1.3 % (0-4) BASOPHIL % 0.6 % (0-2) [id number]: (BETSY: 08/15/2016 13:03) ( WvgRcvd 08/15/2016 13:21) Final results Test Result Flag Units (Reference) D-DIMER QUANTITATIVE < 0.27 L ug/mLFEU (0.27-0.52) The primary value of this quantitative assay relates toits negative predictive value (i.e. exclusion) of pulmonaryembolism/deep vein thrombosis/DIC.Elevated levels of d-dimer may also occur with:, age, cancer, inflammation, liver disease,post-op, infection, hematoma, coronary disease, peripheralarteriopathy, bleeding disorders and thrombolytic treatment.Results should be correlated with other clinical andradiological data.Testing Methodology: Latex Immunoassay CMP: (BETSY: 08/15/2016 13:03) ( WvgRcvd 08/15/2016 13:33) Final results Test Result Flag Units (Reference) GLUCOSE 85 mg/dL (70-110) BUN 12 mg/dL (7-18) CREATININE 0.9 mg/dL (0.6-1.3) Estimated GFR >60 mL/min Estimated GFR- >60 mL/min Note: Persistent reduction over 3 months in eGFR<60 mL/min/1.73 m2 defines CKD. Patients with eGFR values>=60 mL/min/1.73 m2 may also have CKD if evidence ofpersistent proteinuria. Additional information may be foundat www.[email or web address].org. SODIUM 140 mmol/L (136-145) POTASSIUM 4.3 mmol/L (3.5-5.1) CHLORIDE 104 mmol/L (98-107) CARBON DIOXIDE 27 mmol/L (21-32) CALCIUM 9.6 mg/dL (8.5-10.1) TOTAL PROTEIN 6.9 g/dL (6.4-8.2) ALBUMIN 4.0 g/dL (3.3-5.0) BILIRUBIN, TOTAL 0.2 mg/dL (0.0-1.0) ALKALINE PHOSPHATASE 78 U/L (46-116) AST (SGOT) 24 U/L (15-37) ALT (SGPT) 35 U/L (12-78) TROPONIN I <0.05 ng/mL (0.00-1.5) TROPONIN REFERENCE RANGE:<0.1 NEGATIVE0.1-1.5 INDETERMINANT>1.5 POSITIVE . PROGRESS AND PROCEDURES Course of Care: the patient is a pleasant 46-year-old male presenting for nausea and chest pain. Patient has a past medical history significant for smoking. Otherwise, patient does not have any other risk factors for cardiac disease. At this time differential diagnosis includes thoracic aortic dissection, pulmonary embolism, acute myocardial infarction, pneumothorax, pneumonia. Patient is nontoxic and in no acute distress on presentation. Medications for potential gastrointestinal etiologies for the pain as well as nitroglycerin provided. We'll monitor closely. Patient was reevaluated and found to have significant improvement with his symptoms. At this time, it is unclear if the nitroglycerin or the GI cocktail had improved his symptoms. Patient reports that he is not sure which one helped more or less. Some of the patient's laboratory studies are still pending at this time. he patient's laboratory studies had returned. Patient with negative troponin and negative d-dimer. Because of the patient's negative d-dimer, do not fill patient has dissecting thoracic aortic aneurysm,acute myocardial infarction, or pulmonary embolism. The patient's pain had completely resolved while here in the emergency department. The rest of the patient's laboratory studies are also noted. Unremarkable. Because of the patient's negative workup here in the emergency department and the patient's overall low cardiac risk, did not fill patient is be admitted to the hospital require further emergency department workup. Patient is a good outpatient candidate. Had a discussion with the patient in regards to outpatient cardiology follow-up and need for this particular follow-up. Also discussed the patient his workup. Emergency Department clinic diagnosis, home care, follow-up, and return precautions. All questions have been answered. The patient expressed understanding of these instructions and was agreeable to them. Disposition: Discharged. Condition: good. CLINICAL IMPRESSION Chest pain characterized as "discomfort" .12 lead EKG performed. 08/15/2016 12:02 BP: 141/98. HR: 97. RR: 18. O2 saturation: 100%. Temp: 98.1 F. Blood pressure normal. Oxygen saturation normal. INSTRUCTIONS Warnings: GENERAL WARNINGS: Return or contact your physician immediately if your condition worsens or changes unexpectedly, if not improving as expected, or if other problems arise. SPECIFICALLY, return if you develop chest, neck, jaw, shoulder, arm, or back pain, difficulty breathing, a fluttering sensation in your chest, lightheadedness, fainting, excessive fatigue, or sudden sweating. Your Current Medications: Prescription Medications: Pepcid 20 mg: take 1 orally every 12 hours as needed for indigestion, upset stomach or heartburn. Dispense thirty (30). No refills. Substitution is permissible. OTC Medications: Aspirin 81 mg (available over the counter): take 1 orally every 24 hours. Dispense thirty (30). No refills. Follow-up: Return to the emergency department as needed. Follow up with your doctor in three days. Reason for referral: recheck today's concerns. Summary of care provided to patient via paper. Screening today revealed the patient's blood pressure to be in the normal range. The patient should follow up with a primary care provider for blood pressure management. Understanding of the discharge instructions verbalized by patient. Follow-up with: Elida Wakefield MD, Cardiology, , [facility] Cardiology - [facility], [address] [place] [address] [address], [facility], [address] Follow up in three days. Reason for referral: recheck today's concerns. Summary of care provided to patient via paper. (Electronically signed by Bernabe Banda Dr. 08/18/2016 1:21)
--- NOTE | 2016-08-18 01:22 | ED MAR SUMMARY ---
..... Medication Administration Record [facility] [address] [place] [address] Patient: DEO COLLINS Visit ID: [id number] 46y, M Weight: 66.2 kg Height/Length: 67 in BMI: 22.9 ALLERGIES: Penicillin Given 12:20 08/15/2016 Milagro Pozo R.N. Medication Administered: NITROGLYCERIN [SL], Dose: 0.4 mg Tablets SL. Medication Ordered: NitroGLYCERIN SL 0.4 mg (once now). Given 13:03 08/15/2016 Angela Andrea R.N. Medication Administered: ASPIRIN [PO], Dose: 324 mg Tablets PO. Medication Ordered: Aspirin PO 325 mg (Do not crush or chew, NOW). Given 14:05 08/15/2016 Angela Andrea RDavid Medication Administered: GI cocktail, white *, Dose: 30cc * PO. Medication Ordered: GI Cocktail WHITE PO 30 mL (NOW).
--- NOTE | 2016-08-18 01:22 | ED DISCHARGE INSTRUCTIONS ---
Patient: DEO COLLINS General Instructions [facility] VisitID: [id number] [address] [place] [address] 46y, M Registration Date/Time: 08/15/2016 Chest pain characterized as "discomfort" .12 lead EKG performed. 08/15/2016 12:02 BP: 141/98. HR: 97. RR: 18. O2 saturation: 100%. Temp: 98.1 F. Blood pressure normal. Oxygen saturation normal. INSTRUCTIONS Warnings: GENERAL WARNINGS: Return or contact your physician immediately if your condition worsens or changes unexpectedly, if not improving as expected, or if other problems arise. SPECIFICALLY, return if you develop chest, neck, jaw, shoulder, arm, or back pain, difficulty breathing, a fluttering sensation in your chest, lightheadedness, fainting, excessive fatigue, or sudden sweating. Your Current Medications: Prescription Medications: Pepcid 20 mg: take 1 orally every 12 hours as needed for indigestion, upset stomach or heartburn. Dispense thirty (30). No refills. Substitution is permissible. OTC Medications: Aspirin 81 mg (available over the counter): take 1 orally every 24 hours. Dispense thirty (30). No refills. Follow-up: Return to the emergency department as needed. Follow up with your doctor in three days. Reason for referral: recheck today's concerns. Summary of care provided to patient via paper. Screening today revealed the patient's blood pressure to be in the normal range. The patient should follow up with a primary care provider for blood pressure management. Understanding of the discharge instructions verbalized by patient. Follow-up with: Elida Wakefield MD, Cardiology, , [facility] Cardiology - [facility], [address] [place] [address] [address], [facility], [address] Follow up in three days. Reason for referral: recheck today's concerns. Summary of care provided to patient via paper. ADDITIONAL INFORMATION Chest Pain, Uncertain Cause Chest pain can happen for a number of reasons. Sometimes the cause can not be determined. If yourcondition does not seem serious, and your pain does not appear to be coming from your heart, your doctor may recommend watching it closely. Sometimes the signs of a serious problem take more time to appear. Therefore, watch for the warning signs listed below. Home care After your visit, follow these recommendations: Rest today and avoid strenuous activity. Take any prescribed medicine as directed. Follow-up care Follow up with your doctor or this facility as instructed or if you do not start to feel better within 24 hours. Call 911 Get immediate medical attention if any of the following occur: A change in the type of pain: if it feels different, becomes more severe, lasts longer, or begins to spread into your shoulder, arm, neck, jaw or back Shortness of breath or increased pain with breathing Weakness, dizziness, or fainting Rapid heart beat Get prompt medical attention Call your doctor right away if any of the following occur: Cough with dark colored sputum (phlegm) or blood Fever of 100.4F(38C) or higher, or as directed by your health care provider Swelling, pain or redness in one leg Famotidine Oral tablet What is this medicine? FAMOTIDINE (fa ABRAN ti roslyn) is a type of antihistamine that blocks the release of stomach acid. It is used to treat stomach or intestinal ulcers. It can also relieve heartburn from acid reflux. How should I use this medicine? Take this medicine by mouth with a glass of water. Follow the directions on the prescription label. If you only take this medicine once a day, take it at bedtime. Take your doses at regular intervals. Do not take your medicine more often than directed. Talk to your tufting machine operator regarding the use of this medicine in children. Special care may be needed. What side effects may I notice from receiving this medicine? Side effects that you should report to your doctor or health healthcare management as soon as possible: agitation, nervousness confusion hallucinations skin rash, itching Side effects that usually do not require medical attention (report to your doctor or health healthcare management if they continue or are bothersome): constipation diarrhea dizziness headache What may interact with this medicine? delavirdine itraconazole ketoconazole What if I miss a dose? If you miss a dose, take it as soon as you can. If it is almost time for your next dose, take only that dose. Do not take double or extra doses. Where should I keep my medicine? Keep out of the reach of children. Store at room temperature between 15 and 30 degrees C (59 and 86 degrees F). Do not freeze. Throw away any unused medicine after the expiration date. What should I tell my health care provider before I take this medicine? They need to know if you have any of these conditions: kidney or liver disease trouble swallowing an unusual or allergic reaction to famotidine, other medicines, foods, dyes, or preservatives or trying to get breast-feeding What should I watch for while using this medicine? Tell your doctor or health healthcare management if your condition does not start to get better or if it gets worse. Finish the full course of tablets prescribed, even if you feel better. Do not take with aspirin, ibuprofen or other antiinflammatory medicines. These can make your condition worse. Do not smoke cigarettes or drink alcohol. These cause irritation in your stomach and can increase the time it will take for ulcers to heal. If you get black, tarry stools or vomit up what looks like coffee grounds, call your doctor or health healthcare management at once. You may have a bleeding ulcer. Aspirin Oral tablet What is this medicine? ASPIRIN ( pir in) is a pain reliever. It is used to treat mild pain and fever. This medicine is also used as directed by a doctor to prevent and to treat heart attacks, to prevent strokes, and to treat arthritis or inflammation. How should I use this medicine? Take this medicine by mouth with a glass of water. Follow the directions on the package or prescription label. You can take this medicine with or without food. If it upsets your stomach, take it with food. Do not take your medicine more often than directed. Talk to your tufting machine operator regarding the use of this medicine in children. While this drug may be prescribed for children as young as 12 years of age for selected conditions, precautions do apply. Children and teenagers should not use this medicine to treat chicken pox or flu symptoms unless directed by a doctor. Patients over 65 years old may have a stronger reaction and need a smaller dose. What side effects may I notice from receiving this medicine? Side effects that you should report to your doctor or health healthcare management as soon as possible: allergic reactions like skin rash, itching or hives, swelling of the face, lips, or tongue breathing problems changes in hearing, ringing in the ears confusion general ill feeling or flu-like symptoms pain on swallowing redness, blistering, peeling or loosening of the skin, including inside the mouth or nose signs and symptoms of bleeding such as bloody or black, tarry stools; red or dark-brown urine; spitting up blood or brown material that looks like coffee grounds; red spots on the skin; unusual bruising or bleeding from the eye, gums, or nose trouble passing urine or change in the amount of urine unusually weak or tired yellowing of the eyes or skin Side effects that usually do not require medical attention (report to your doctor or health healthcare management if they continue or are bothersome): diarrhea or constipation nausea, vomiting stomach gas, heartburn What may interact with this medicine? Do not take this medicine with any of the following medications: cidofovir ketorolac probenecid This medicine may also interact with the following medications: alcohol alendronate bismuth subsalicylate flavocoxid herbal supplements like feverfew, garlic, yuri, ginkgo biloba, horse chestnut medicines for diabetes or glaucoma like acetazolamide, methazolamide medicines for gout medicines that treat or prevent blood clots like enoxaparin, heparin, ticlopidine, warfarin other aspirin and aspirin-like medicines NSAIDs, medicines for pain and inflammation, like ibuprofen or naproxen pemetrexed sulfinpyrazone varicella live vaccine What if I miss a dose? If you are taking this medicine on a regular schedule and miss a dose, take it as soon as you can. If it is almost time for your next dose, take only that dose. Do not take double or extra doses. Where should I keep my medicine? Keep out of the reach of children. Store at room temperature between 15 and 30 degrees C (59 and 86 degrees F). Protect from heat and moisture. Do not use this medicine if it has a strong vinegar smell. Throw away any unused medicine after the expiration date. What should I tell my health care provider before I take this medicine? They need to know if you have any of these conditions: anemia asthma bleeding problems child with chickenpox, the flu, or other viral infection diabetes gout if you frequently drink alcohol containing drinks kidney disease liver disease low level of vitamin K lupus smoke tobacco stomach ulcers or other problems an unusual or allergic reaction to aspirin, tartrazine dye, other medicines, dyes, or preservatives or trying to get breast-feeding What should I watch for while using this medicine? If you are treating yourself for pain, tell your doctor or health healthcare management if the pain lasts more than 10 days, if it gets worse, or if there is a new or different kind of pain. Tell your doctor if you see redness or swelling. Also, check with your doctor if you have a fever that lasts for more than 3 days. Only take this medicine to prevent heart attacks or blood clotting if prescribed by your doctor or health healthcare management. Do not take aspirin or aspirin-like medicines with this medicine. Too much aspirin can be dangerous. Always read the labels carefully. This medicine can irritate your stomach or cause bleeding problems. Do not smoke cigarettes or drink alcohol while taking this medicine. Do not lie down for 30 minutes after taking this medicine to prevent irritation to your throat. If you are scheduled for any medical or dental procedure, tell your healthcare provider that you are taking this medicine. You may need to stop taking this medicine before the procedure. You have been given the following additional information: Chest Pain, Uncertain Cause Famotidine Oral tablet Aspirin Oral tablet (Electronically signed by Bernabe Banda Dr. 08/18/2016 1:21)
--- NOTE | 2016-08-18 01:22 | ED DISCHARGE INSTRUCTIONS ---
Patient: DEO COLLINS General Instructions [facility] VisitID: [id number] [address] [place] [address] 46y, M Registration Date/Time: 08/15/2016 Chest pain characterized as "discomfort" .12 lead EKG performed. 08/15/2016 12:02 BP: 141/98. HR: 97. RR: 18. O2 saturation: 100%. Temp: 98.1 F. Blood pressure normal. Oxygen saturation normal. INSTRUCTIONS Warnings: GENERAL WARNINGS: Return or contact your physician immediately if your condition worsens or changes unexpectedly, if not improving as expected, or if other problems arise. SPECIFICALLY, return if you develop chest, neck, jaw, shoulder, arm, or back pain, difficulty breathing, a fluttering sensation in your chest, lightheadedness, fainting, excessive fatigue, or sudden sweating. Your Current Medications: Prescription Medications: Pepcid 20 mg: take 1 orally every 12 hours as needed for indigestion, upset stomach or heartburn. Dispense thirty (30). No refills. Substitution is permissible. OTC Medications: Aspirin 81 mg (available over the counter): take 1 orally every 24 hours. Dispense thirty (30). No refills. Follow-up: Return to the emergency department as needed. Follow up with your doctor in three days. Reason for referral: recheck today's concerns. Summary of care provided to patient via paper. Screening today revealed the patient's blood pressure to be in the normal range. The patient should follow up with a primary care provider for blood pressure management. Understanding of the discharge instructions verbalized by patient. Follow-up with: Elida Wakefield MD, Cardiology, , [facility] - [facility], [address] [place] [address] [address], [facility], [id number] Follow up in three days. Reason for referral: recheck today's concerns. Summary of care provided to patient via paper. ADDITIONAL INFORMATION Chest Pain, Uncertain Cause Chest pain can happen for a number of reasons. Sometimes the cause can not be determined. If yourcondition does not seem serious, and your pain does not appear to be coming from your heart, your doctor may recommend watching it closely. Sometimes the signs of a serious problem take more time to appear. Therefore, watch for the warning signs listed below. Home care After your visit, follow these recommendations: Rest today and avoid strenuous activity. Take any prescribed medicine as directed. Follow-up care Follow up with your doctor or this facility as instructed or if you do not start to feel better within 24 hours. Call 911 Get immediate medical attention if any of the following occur: A change in the type of pain: if it feels different, becomes more severe, lasts longer, or begins to spread into your shoulder, arm, neck, jaw or back Shortness of breath or increased pain with breathing Weakness, dizziness, or fainting Rapid heart beat Get prompt medical attention Call your doctor right away if any of the following occur: Cough with dark colored sputum (phlegm) or blood Fever of 100.4F(38C) or higher, or as directed by your health care provider Swelling, pain or redness in one leg Famotidine Oral tablet What is this medicine? FAMOTIDINE (fa ABRAN ti roslyn) is a type of antihistamine that blocks the release of stomach acid. It is used to treat stomach or intestinal ulcers. It can also relieve heartburn from acid reflux. How should I use this medicine? Take this medicine by mouth with a glass of water. Follow the directions on the prescription label. If you only take this medicine once a day, take it at bedtime. Take your doses at regular intervals. Do not take your medicine more often than directed. Talk to your business support liaison regarding the use of this medicine in children. Special care may be needed. What side effects may I notice from receiving this medicine? Side effects that you should report to your doctor or health healthcare science specialist as soon as possible: agitation, nervousness confusion hallucinations skin rash, itching Side effects that usually do not require medical attention (report to your doctor or health healthcare science specialist if they continue or are bothersome): constipation diarrhea dizziness headache What may interact with this medicine? delavirdine itraconazole ketoconazole What if I miss a dose? If you miss a dose, take it as soon as you can. If it is almost time for your next dose, take only that dose. Do not take double or extra doses. Where should I keep my medicine? Keep out of the reach of children. Store at room temperature between 15 and 30 degrees C (59 and 86 degrees F). Do not freeze. Throw away any unused medicine after the expiration date. What should I tell my health care provider before I take this medicine? They need to know if you have any of these conditions: kidney or liver disease trouble swallowing an unusual or allergic reaction to famotidine, other medicines, foods, dyes, or preservatives or trying to get breast-feeding What should I watch for while using this medicine? Tell your doctor or health healthcare science specialist if your condition does not start to get better or if it gets worse. Finish the full course of tablets prescribed, even if you feel better. Do not take with aspirin, ibuprofen or other antiinflammatory medicines. These can make your condition worse. Do not smoke cigarettes or drink alcohol. These cause irritation in your stomach and can increase the time it will take for ulcers to heal. If you get black, tarry stools or vomit up what looks like coffee grounds, call your doctor or health healthcare science specialist at once. You may have a bleeding ulcer. Aspirin Oral tablet What is this medicine? ASPIRIN ( pir in) is a pain reliever. It is used to treat mild pain and fever. This medicine is also used as directed by a doctor to prevent and to treat heart attacks, to prevent strokes, and to treat arthritis or inflammation. How should I use this medicine? Take this medicine by mouth with a glass of water. Follow the directions on the package or prescription label. You can take this medicine with or without food. If it upsets your stomach, take it with food. Do not take your medicine more often than directed. Talk to your business support liaison regarding the use of this medicine in children. While this drug may be prescribed for children as young as 12 years of age for selected conditions, precautions do apply. Children and teenagers should not use this medicine to treat chicken pox or flu symptoms unless directed by a doctor. Patients over 65 years old may have a stronger reaction and need a smaller dose. What side effects may I notice from receiving this medicine? Side effects that you should report to your doctor or health healthcare science specialist as soon as possible: allergic reactions like skin rash, itching or hives, swelling of the face, lips, or tongue breathing problems changes in hearing, ringing in the ears confusion general ill feeling or flu-like symptoms pain on swallowing redness, blistering, peeling or loosening of the skin, including inside the mouth or nose signs and symptoms of bleeding such as bloody or black, tarry stools; red or dark-brown urine; spitting up blood or brown material that looks like coffee grounds; red spots on the skin; unusual bruising or bleeding from the eye, gums, or nose trouble passing urine or change in the amount of urine unusually weak or tired yellowing of the eyes or skin Side effects that usually do not require medical attention (report to your doctor or health healthcare science specialist if they continue or are bothersome): diarrhea or constipation nausea, vomiting stomach gas, heartburn What may interact with this medicine? Do not take this medicine with any of the following medications: cidofovir ketorolac probenecid This medicine may also interact with the following medications: alcohol alendronate bismuth subsalicylate flavocoxid herbal supplements like feverfew, garlic, yuri, ginkgo biloba, horse chestnut medicines for diabetes or glaucoma like acetazolamide, methazolamide medicines for gout medicines that treat or prevent blood clots like enoxaparin, heparin, ticlopidine, warfarin other aspirin and aspirin-like medicines NSAIDs, medicines for pain and inflammation, like ibuprofen or naproxen pemetrexed sulfinpyrazone varicella live vaccine What if I miss a dose? If you are taking this medicine on a regular schedule and miss a dose, take it as soon as you can. If it is almost time for your next dose, take only that dose. Do not take double or extra doses. Where should I keep my medicine? Keep out of the reach of children. Store at room temperature between 15 and 30 degrees C (59 and 86 degrees F). Protect from heat and moisture. Do not use this medicine if it has a strong vinegar smell. Throw away any unused medicine after the expiration date. What should I tell my health care provider before I take this medicine? They need to know if you have any of these conditions: anemia asthma bleeding problems child with chickenpox, the flu, or other viral infection diabetes gout if you frequently drink alcohol containing drinks kidney disease liver disease low level of vitamin K lupus smoke tobacco stomach ulcers or other problems an unusual or allergic reaction to aspirin, tartrazine dye, other medicines, dyes, or preservatives or trying to get breast-feeding What should I watch for while using this medicine? If you are treating yourself for pain, tell your doctor or health healthcare science specialist if the pain lasts more than 10 days, if it gets worse, or if there is a new or different kind of pain. Tell your doctor if you see redness or swelling. Also, check with your doctor if you have a fever that lasts for more than 3 days. Only take this medicine to prevent heart attacks or blood clotting if prescribed by your doctor or health healthcare science specialist. Do not take aspirin or aspirin-like medicines with this medicine. Too much aspirin can be dangerous. Always read the labels carefully. This medicine can irritate your stomach or cause bleeding problems. Do not smoke cigarettes or drink alcohol while taking this medicine. Do not lie down for 30 minutes after taking this medicine to prevent irritation to your throat. If you are scheduled for any medical or dental procedure, tell your healthcare provider that you are taking this medicine. You may need to stop taking this medicine before the procedure. You have been given the following additional information: Chest Pain, Uncertain Cause Famotidine Oral tablet Aspirin Oral tablet (Electronically signed by Bernabe Banda Dr. 08/18/2016 1:21)
--- NOTE | 2016-08-18 01:22 | ED MED RECONCILIATION SUMMARY ---
Patient: DEO COLLINS Medication Reconciliation Report [facility] VisitID: [id number] [address] [place] [address] 46y, M Registration Date/Time: 08/15/2016 Weight: 66.2 kg Height/Length: 67 in. BMI: 22.9 ALLERGIES: Penicillin The patient's Home Medications are listed below: NONE. The source(s) of the original Home Medication information: Not obtained. The following Medications were given to the patient in the Emergency Department: Nitroglycerin [SL] SL 0.4 mg, administered: 08/15/2016 12:20:00 PM Aspirin [PO] PO 324 mg, administered: 08/15/2016 1:03:00 PM GI cocktail, white PO 30cc, administered: 08/15/2016 2:05:00 PM The following Medications were prescribed to the patient: Pepcid 20 mg: take 1 orally every 12 hours as needed for indigestion, upset stomach or heartburn. Dispense thirty (30). No refills. Substitution is permissible. -- Bernabe Banda Dr. Aspirin 81 mg (available over the counter): take 1 orally every 24 hours. Dispense thirty (30). No refills. -- Bernabe Banda Dr.
--- NOTE | 2016-08-18 01:22 | ED MED RECONCILIATION SUMMARY ---
Patient: DEO COLLINS Medication Reconciliation Report [facility] VisitID: [id number] [address] [place] [address] 46y, M Registration Date/Time: 08/15/2016 Weight: 66.2 kg Height/Length: 67 in. BMI: 22.9 ALLERGIES: Penicillin The patient's Home Medications are listed below: NONE. The source(s) of the original Home Medication information: Not obtained. The following Medications were given to the patient in the Emergency Department: Nitroglycerin [SL] SL 0.4 mg, administered: 08/15/2016 12:20:00 PM Aspirin [PO] PO 324 mg, administered: 08/15/2016 1:03:00 PM GI cocktail, white PO 30cc, administered: 08/15/2016 2:05:00 PM The following Medications were prescribed to the patient: Pepcid 20 mg: take 1 orally every 12 hours as needed for indigestion, upset stomach or heartburn. Dispense thirty (30). No refills. Substitution is permissible. -- Bernabe Banda Dr. Aspirin 81 mg (available over the counter): take 1 orally every 24 hours. Dispense thirty (30). No refills. -- Bernabe Banda Dr.
--- NOTE | 2016-08-18 01:22 | ED MAR SUMMARY ---
..... Medication Administration Record Located Within [facility] [address] [place] [address] Patient: DEO COLLINS Visit ID: [id number] 46y, M Weight: 66.2 kg Height/Length: 67 in BMI: 22.9 ALLERGIES: Penicillin Given 12:20 08/15/2016 Milagro Pozo R.N. Medication Administered: NITROGLYCERIN [SL], Dose: 0.4 mg Tablets SL. Medication Ordered: NitroGLYCERIN SL 0.4 mg (once now). Given 13:03 08/15/2016 Angela Andrea R.N. Medication Administered: ASPIRIN [PO], Dose: 324 mg Tablets PO. Medication Ordered: Aspirin PO 325 mg (Do not crush or chew, NOW). Given 14:05 08/15/2016 Angela Andrea RDavid Medication Administered: GI cocktail, white *, Dose: 30cc * PO. Medication Ordered: GI Cocktail WHITE PO 30 mL (NOW).
== END 2016-08-15 14:30 | disposition home or self-care (01) ==
LOC: ED SRH 11:52
DX: R07.9 Chest pain, unspecified (principal); F17.210 Nicotine dependence, cigarettes, uncomplicated; Z88.0 Allergy status to penicillin
CPT/HCPCS: 90004; 90074; 90100; 90616; 91556; 95059

== ENCOUNTER 2016-11-11 13:34 | Outpatient (CLI) | payer OTHER ==
--- NOTE | 2016-11-11 15:31 | DIAGNOSTIC IMAGING REPORT ---
PROCEDURE: MR UPPER EXTREMITY W/O CONT-RT INDICATION: RT SHOULDER STRAIN TECHNIQUE: PD and FAT-SAT PD, axial, and coronal-oblique images. PD and STIR sagittal-oblique images. COMPARISON: None. FINDINGS: Mild AC joint degenerative changes and type 2 acromion resulting in mild impingement. No evidence of tendinosis or tear. There is a small subdeltoid fluid collection. Heterogeneous signal of the superior labrum, in the absence of a contrast, suspicious for a superior labral tear. Normal bicipital tendon. Mild coracoid impingement (8 mm). Normal musculature. No suspicious osseous lesions. IMPRESSION: 1. Mild AC joint degenerative changes and mild impingement 2. Subdeltoid bursitis 3. Heterogeneous signal of the superior labrum, suspicious for tear. Correlate clinically. MRI with arthrogram may be useful for further evaluation. 4. Coracoid impingement
== END 2016-11-11 23:00 ==
LOC: MRI SRH 13:34
DX: S46.911A Strain of unspecified muscle, fascia and tendon at shoulder and upper arm level, right arm, initial encounter (principal); M75.51 Bursitis of right shoulder; M75.41 Impingement syndrome of right shoulder